=== PATIENT | male | born 1995 | race Caucasian/White ===

== ENCOUNTER → 2020-01-17 | Emergency (ER) | payer BC ==
--- NOTE | 2020-01-17 16:54 | RAD ---
RIGHT KNEE FOUR VIEWS: 01/17/20 No fracture or joint effusion was seen. There is a large amount of prepatellar swelling, however. The joint space appears normal. IMPRESSION: Prepatellar swelling. POS: HOME
== END ==
LOC: BURERS 08:41
DX: M70.41 Prepatellar bursitis, right knee (principal); M25.561 Pain in right knee